=== PATIENT | male | born 1975 | race Caucasian/White ===

== ENCOUNTER 2018-06-28 08:40 | Emergency (ER) | payer OTHER ==
[~2018-06-28] VITALS: Ht 200.7 cm; Wt 112.3 kg
[2018-06-28 08:51] VITALS: BP 143/57
[2018-06-28] MEDS ORDERED: LIDOcaine 1% 30ml preserv. free vial IJ ONE (09:15)
[2018-06-28] MEDS ORDERED: LIDOcaine 1% w/epiNEPHrine 1:200,000 30ml vial IJ ONE (09:35)
--- NOTE | 2018-06-28 09:38 | NUR ---
PT IS SOAKING LEFT FOOT IN WARM WATER.
[2018-06-28] MEDS ORDERED: SULF1TAB49 PO (10:20)
== END 2018-06-28 10:31 | disposition home or self-care (01) ==
LOC: ER 08:40
DX: L02.611 Cutaneous abscess of right foot (principal)
CPT/HCPCS: 10060; 99283; J3490

== ENCOUNTER 2021-04-24 10:29 | Emergency (ER) | payer MEDICAID ==
[~2021-04-24] VITALS: Ht 200.7 cm; Wt 113.6 kg
[2021-04-24 12:22] LABS: BASOPHILS % (AUTO) 0.5 % (0-1); EOSINOPHILS % (AUTO) 0.1 % (0-6); HEMATOCRIT 44.7 % (42.0-52.0); HEMOGLOBIN 15.8 g/dl (14.0-17.9); LYMPHOCYTES # (AUTO) 0.8 X10'3 (1.1-4.8); LYMPHOCYTES % (AUTO) 12.5 % (21-51); MEAN CORPUSCULAR HEMOGLOBIN 32.3 PG (27.0-31.0); MEAN CORPUSCULAR HGB CONC 35.3 g/dL (33.0-36.5); MEAN CORPUSCULAR VOLUME 91.6 FL (78-98); MEAN PLATELET VOLUME 9.1 FL (7.4-10.4); MONOCYTES # (AUTO) 0.5 X10'3 (0-0.9); NEUTROPHILS # (AUTO) 5.2 X10'3 (1.8-7.7); NEUTROPHILS % (AUTO) 78.9 % (42-75); PLATELET COUNT 127 X10'3 (140-440); RED BLOOD COUNT 4.88 X10'6 (4.70-6.10); RED CELL DISTRIBUTION WIDTH 12.4 % (11.5-14.5); WHITE BLOOD COUNT 6.6 X10'3 (4.5-11.0)
[2021-04-24 12:30] LABS: D-DIMER 1.05 MG/L FEU (0-0.50)
[2021-04-24 12:34] LABS: ALANINE AMINOTRANSFERASE 59 U/L (12-78); ALBUMIN 3.1 G/DL (3.4-5.0); ALBUMIN/GLOBULIN RATIO 0.7 (1.1-1.5); ALKALINE PHOSPHATASE 50 IU/L (46-116); ANION GAP 4 (8-16); ASPARTATE AMINO TRANSFERASE 46 U/L (10-37); BILIRUBIN,TOTAL 0.6 MG/DL (0.1-1.0); BLOOD UREA NITROGEN 12 MG/DL (7-18); BUN/CREATININE RATIO 11.3 (5.4-32.0); CALCIUM 8.2 MG/DL (8.5-10.1); CHLORIDE 98 MMOL/L (99-107); CREATININE 1.06 MG/DL (0.60-1.10); GLUCOSE 110 MG/DL (70-104); POTASSIUM 4.2 MMOL/L (3.5-5.1); SODIUM 132 MMOL/L (135-145); TOTAL CARBON DIOXIDE 30.3 MMOL/L (24-32); TOTAL PROTEIN 7.6 G/DL (6.4-8.2); eGFR 76 ML/MIN
[2021-04-24] MEDS ORDERED: iohexol 350MG/ML 100ml bottle IV ONE (13:23)
[2021-04-24] MEDS ORDERED: DEXA6TAB6 PO (14:53)
[2021-04-24] MEDS ORDERED: DEXAMETHASONE 6 MG TABLET PO STA (14:54)
[2021-04-24 15:08] VITALS: BP 113/67
[2021-04-24] MEDS ORDERED: BUDE180A INH (15:12)
--- NOTE | 2021-04-24 15:17 | NUR ---
CASE MANAGEMENT PAGED FOR HOME O2
== END 2021-04-24 16:15 | disposition home or self-care (01) ==
LOC: ER 10:31
DX: U07.1 COVID-19 (principal); J12.82 Pneumonia due to coronavirus disease 2019; R11.0 Nausea; R43.8 Other disturbances of smell and taste; R05.9 Cough, unspecified; R06.02 Shortness of breath; R50.9 Fever, unspecified; F17.200 Nicotine dependence, unspecified, uncomplicated; Z72.89 Other problems related to lifestyle; Z79.899 Other long term (current) drug therapy
CPT/HCPCS: 36415; 71045; 71275; 80053; 84145; 85025; 85379; 87635; 93005; 99285; C9803; Q9967; J8540